=== PATIENT | female | born 1955 | race Caucasian/White ===

== ENCOUNTER 2016-07-09 14:43 | Observation (INO) | payer OTHER ==
--- NOTE | 2016-07-09 14:57 | CPEKG ---
Heart Rate: 66 RR Interval: 909 P-R Interval: 140 QRSD Interval: 96 QT Interval: 412 QTC Interval: 432 P [place]: 38 QRS [place]: -25 T Wave [place]: 52 EKG Severity - ABNORMAL ECG - EKG Impression: SINUS RHYTHM EKG Impression: BORDERLINE LEFT AXIS DEVIATION EKG Impression: CONSIDER POSTERIOR INFARCT EKG Impression: MINIMAL ST DEPRESSION, LATERAL LEADS Electronically Signed By: Wes Avelar 11-Jul-2016 08:40:51
--- NOTE | 2016-07-09 15:04 | EDPHY ---
HPI/HX/ROS/PE/MDM Narrative: Chief complaint: Chest pain HPI: Patient presenting with substernal chest pain radiating to her left shoulder, 12/03. This began approximately 30 minutes prior to arrival at the emergency department. 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 Pain began at rest. She does not have a history of the same. She has a past medical history of rheumatoid arthritis, osteoarthritis and pancreatitis 3 years ago. Some shortness of breath associated with this. No nausea or vomiting. She does have a family history of coronary disease. Father of an DC at age 56. She does not smoke and never has. ROS: 10 point Review of Systems is negative except as noted in the HPI. Past medical history: Rheumatoid arthritis Osteoarthritis Pancreatitis Medications: Benicar Omeprazole Cymbalta vicoprofen p.r.n. Allergies: Reglan and chloroquine Physical exam: Gen: Awake, Alert, uncomfortable appearing HEENT: Nose: no rhinorrhea Eyes: PERRLA, EOMI Mouth: Moist mucosa Neck: Supple, no JVD Chest: nontender, lungs clear to auscultation Heart: S1, S2 normal, no murmur Abd: Soft, non-tender, no guarding Back: no CVA tenderness, no midline tenderness Ext: no edema, non-tender Skin: no rash Neuro: CN II-XII intact, Sensation grossly intact, Strength 5/5 in bilateral upper and lower extremities ED Course: EC:55 sinus rhythm with a rate of 66. Normal will a [address]-depression in leads V4 & V5. Friends also consistent with old posterior infarct MDM: 61-year-old female presenting with substernal chest pain radiating to her left shoulder. Has episodes of coronary disease. Initially on arrival here was 7 on 10. During my evaluation her pain dropped from a 7 to a 10. ECG showed some mild ST depression in lateral leads but no acute ST elevations. Will give aspirin and nitrates. Troponin ordered. She will ultimately require admission for further evaluation. - Data Points Laboratory Results: Laboratory Results 07/09/16 15:06 07/09/16 15:06 07/09/16 15:06 WBC 7.21 10^3/uL (3.80-9.50) RBC 4.48 10^6/uL (4.18-5.33) Hgb 13.9 g/dL (12.6-16.3) Hct 41.2 % (38.0-47.0) MCV 92.0 fL (81.5-99.8) MCH 31.0 pg (27.9-34.1) MCHC 33.7 g/dL (32.4-36.7) RDW 13.3 % (11.5-15.2) Plt Count 233 10^3/uL (150-400) MPV 9.5 fL (8.7-11.7) Neut % (Auto) 53.2 % (39.3-74.2) Lymph % (Auto) 37.7 % (15.0-45.0) [place] % (Auto) 6.1 % (4.5-13.0) Eos % (Auto) 2.1 % (0.6-7.6) Baso % (Auto) 0.6 % (0.3-1.7) Nucleat RBC Rel Count 0.0 % (0.0-0.2) Absolute Neuts (auto) 3.84 10^3/uL (1.70-6.50) Absolute Lymphs (auto) 2.72 10^3/uL (1.00-3.00) Absolute Monos (auto) 0.44 10^3/uL (0.30-0.80) Absolute Eos (auto) 0.15 10^3/uL (0.03-0.40) Absolute Basos (auto) 0.04 10^3/uL (0.02-0.10) Absolute Nucleated RBC 0.00 10^3/uL (0-0.01) Immature Gran % 0.3 % (0.0-1.1) Immature Gran # 0.02 10^3/uL (0.00-0.10) Sodium 141 mEq/L (134-144) Potassium 3.7 mEq/L (3.5-5.2) Chloride 108 mEq/L (97-110) Carbon Dioxide 23 mEq/l (22-31) Anion Gap 10 mEq/L (8-16) BUN 25 H mg/dL (7-23) Creatinine 0.8 mg/dL (0.6-1.0) Estimated GFR > 60 Glucose 90 mg/dL (70-100) Calcium 9.7 mg/dL (8.5-10.4) Troponin I < 0.012 ng/mL (0-0.034) Medications Given: Discontinued Medications Aspirin (Aspirin) 324 mg PO EDNOW ONE Stop: 07/09/16 15:08 Last Admin: 07/09/16 15:25 Dose: 324 mg Nitroglycerin (Nitrostat) 0.4 mg SL EDNOW ONE Stop: 07/09/16 15:08 Last Admin: 07/09/16 15:25 Dose: 0.4 mg General Time Seen by Provider: 07/09/16 14:50 Initial Vital Signs: Initial Vital Signs Temperature (C) 36.2 C 07/09/16 14:43 Heart Rate 69 07/09/16 14:43 Respiratory Rate 16 07/09/16 14:43 Blood Pressure 140/98 H 07/09/16 14:43 O2 Sat (%) 98 07/09/16 14:43 O2 Delivery Mode Room Air Allergies/Adverse Reactions: metoclopramide HCl [From Reglan] Allergy (Verified 11/02/13 14:46) HYDROCHOLORQUIN Allergy (Uncoded 07/09/16 14:48) Home Medications: Medication Instructions Recorded DULoxetine [Cymbalta] 60 mg PO DAILY 07/29/11 Cyclobenzaprine [Flexeril] 20 mg PO HS PRN 07/30/11 Hydrocodone/Ibuprofen [VICOPROFEN 11/02/13 200-7.5 MG TAB] Olmesartan Medoxomil [Benicar] 11/02/13 Omeprazole [Prilosec 20 mg] 11/02/13 Departure - Departure Disposition: [facility] Clinical Impression: Chest pain Condition: Fair
[2016-07-09] MEDS ORDERED: ASPIRIN 81 MG CHEWABLE TAB PO ONE (15:07)
[2016-07-09] MEDS ORDERED: NITROGLYCERIN 0.4 MG BTL SL ONE (15:07)
[2016-07-09 15:18] LABS: % IMMATURE GRANULYOCYTES 0.3 % (0.0-1.1); ABSOLUTE IMMATURE GRANULOCYTES 0.02 10^3/uL (0.00-0.10); ADD DIFF? NO; ADD MORPH? NO; ADD SCAN? NO; ATYPICAL LYMPHOCYTE FLAG 10 (0-99); FRAGMENT RBC FLAG 0 (0-99); HEMATOCRIT 41.2 % (38.0-47.0); HEMOGLOBIN 13.9 g/dL (12.6-16.3); LEFT SHIFT FLG 0 (0-99); LIPEMIA HEMOLYSIS FLAG 80 (0-99); MEAN CELL HEMOGLOBIN CONCENTR. 33.7 g/dL (32.4-36.7); MEAN PLATELET VOLUME 9.5 fL (8.7-11.7); PLATELET CLUMPS FLAG 0 (0-99); PLATELET COUNT 233 10^3/uL (150-400); RED BLOOD CELL COUNT 4.48 10^6/uL (4.18-5.33); RED CELL DISTRIBUTION WIDTH 13.3 % (11.5-15.2)
[2016-07-09 15:41] LABS: ANION GAP 10 mEq/L (8-16); CALCIUM 9.7 mg/dL (8.5-10.4); CARBON DIOXIDE 23 mEq/l (22-31); CHLORIDE 108 mEq/L (97-110); CREATININE 0.8 mg/dL (0.6-1.0); GLOMERULAR FILTRATION RATE > 60; GLUCOSE 90 mg/dL (70-100); POTASSIUM 3.7 mEq/L (3.5-5.2); SODIUM 141 mEq/L (134-144)
[2016-07-09 15:51] LABS: TROPONIN I < 0.012 ng/mL (0-0.034)
[2016-07-09] MEDS ORDERED: ACETAMINOPHEN 325 MG TAB PO ONE (15:59)
[2016-07-09] MEDS ORDERED: ONDANSETRON 4 MG/2 ML VIAL IVP PRN (16:27)
[2016-07-09] MEDS ORDERED: ONDANSETRON DISINTEGRATING 4 MG TAB PO PRN (16:27)
[2016-07-09] MEDS ORDERED: ACETAMINOPHEN 325 MG TAB PO PRN (16:27)
[2016-07-09] MEDS ORDERED: NITROGLYCERIN 0.4 MG BTL SL PRN (16:27)
--- NOTE | 2016-07-09 16:58 | DX ---
PA and lateral chest. Clinical History: CP Comparison Study: September 20, 2015.. Findings: The lungs are clear. No pleural disease identified. Heart size is normal. Moderate tortuosity of the descending thoracic aorta, unchanged.. Impression: Stable negative chest.
--- NOTE | 2016-07-09 17:00 | GHP ---
[f rep st] HISTORY AND PHYSICAL DATE OF ADMISSION: 07/09/2016 CHIEF COMPLAINT: Left-sided chest pain. HISTORY OF PRESENT ILLNESS: Patient is a 61-year-old female with past medical history of rheumatoid arthritis, migraines, presenting with left-sided chest pain. She was sitting at her desk at work at approximately 2:30 this afternoon and developed sharp left-sided chest pain with radiation to her shoulder. She did have associated shortness of breath with it. She felt nauseated this morning, but did not think much of it. She denied diaphoresis or numbness. The pain was relieved with nitroglycerin in the emergency room. She is currently chest pain-free. No fevers, chills or sweats. Has had an upper respiratory infection for the past 5 weeks. Does not exercise. She walks stairs daily at work without chest pain or shortness of breath. The patient has been seen previously by Dr. Hughes last year, who recommended stress test at that time. The patient was waiting for this year for the new [employer] account to be able to pay the co-pay. REVIEW OF SYSTEMS: A complete 10-point review of systems negative except HPI. PAST MEDICAL HISTORY: 1. Migraines. 2. Rheumatoid arthritis. 3. History of pancreatitis. PAST SURGICAL HISTORY: C section x2. SOCIAL HISTORY: Lives in [place]. 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 Denies illicit tobacco or drugs. FAMILY HISTORY: Father of an HI at age 66. Paternal uncle of an HI. MEDICATIONS: 1. Flexeril p.r.n. 2. Cymbalta 60 mg daily. 3. Vicoprofen p.r.n. 4. Benicar 20 mg daily. 5. Omeprazole 20 mg daily. ALLERGIES: Reglan and hydrochloroquine. PHYSICAL EXAM: VITAL SIGNS: Temperature 36.3, blood pressure 137/81, heart rate 60, respirations 18, 98% on room air. GENERAL: Patient is lying in bed, in no acute distress. HEENT: PERRLA, EOMI. Moist mucous membranes. CV: No reproducible chest pain. No lower extremity edema. LUNGS: Clear to auscultation bilaterally. ABDOMEN: Soft, nontender, nondistended. Positive bowel sounds. : No suprapubic tenderness. No Segura. MUSCULOSKELETAL: Moving all 4 extremities. NEURO: 2 through 12 intact. PSYCH: Alert and oriented x3. Very pleasant. LABS: Sodium 141, potassium , chloride 108, carbon dioxide 23, BUN 25 , creatinine 0.8, glucose 90, calcium 9.7, troponin less than 0.012. EKG personally reviewed by me: Normal sinus rhythm. No ST elevation. Some ST flattening in lead 3, aVF. ASSESSMENT AND PLAN: 1. Left-sided chest pain: Concerning giving typical symptoms left-sided with radiation. It was relieved with nitroglycerin. She does have a family history with father and uncle with myocardial infarction. Initial troponin and EKG are negative. I will repeat both of these. Admit patient to the EACU for continuous telemetry. Patient has difficulty walking given osteoarthritis. Will order a Lexiscan to be done in the morning. The patient is agreeable to this plan. 2. Rheumatoid arthritis: Continue home medications. 3. Benign hypertension. Continue Benicar. 4. Gastroesophageal reflux disease. Continue proton pump inhibitor. 5. Diet: Regular, caffeine free. 6. Deep vein thrombosis prophylaxis, low risk, ambulatory. DISPOSITION: Patient warrants observation admission given acute chest pain with concern for ACS. We will repeat serial troponin, EKG and Lexiscan test. /[id number]/MODL MTDD
[2016-07-09 20:48] LABS: HEMOGLOBIN A1C 5.9 % (4.0-6.0)
[2016-07-09] MEDS ORDERED: CYCLOBENZAPRINE 10 MG TAB PO PRN (20:57)
[2016-07-09] MEDS ORDERED: IBUPROFEN PO PRN (20:57)
[2016-07-09] MEDS ORDERED: LIDOCAINE 5% 1 EA PATCH TD PRN (20:57)
[2016-07-09] MEDS ORDERED: SUMATRIPTAN SUCC PO PRN (20:57)
[2016-07-09] MEDS ORDERED: HYDROCODONE PO PRN (20:57)
[2016-07-09] MEDS ORDERED: NAPROXEN SOD PO PRN (20:57)
[2016-07-09] MEDS ORDERED: OMEGA-3 FATTY ACIDS 1,000 MG CAP PO SCH (21:00)
[2016-07-09] MEDS: HYDROCODONE/APAP 10/325 TAB PO PRN (21:57)
--- NOTE | 2016-07-09 22:50 | CPEKG ---
Heart Rate: 59 RR Interval: 1017 P-R Interval: 140 QRSD Interval: 104 QT Interval: 428 QTC Interval: 424 P [place]: 46 QRS [place]: -13 T Wave [place]: 40 EKG Severity - ABNORMAL ECG - EKG Impression: SINUS RHYTHM Electronically Signed By: Wes Avelar 11-Jul-2016 08:41:01
[2016-07-10] MEDS ORDERED: LEVOTHYROXINE 25 MCG TAB PO SCH (06:00)
[2016-07-10 06:27] LABS: CHOLESTEROL 218 mg/dL (140-220); CHOLESTEROL/HDL RATIO 4.54 RATIO (1.00-4.44); HIGH DENSITY LIPOPROTEIN 48 mg/dL (40-85); LDL/HDL RATIO 3.08 RATIO (1.00-3.22); LOW DENSITY LIPOPROTEIN 148 mg/dL (80-100); NON-HIGH DENSITY LIPOPROTEIN 170 mg/dL (90-129); TRIGLYCERIDE 113 mg/dL (35-135); VERY LOW DENSITY LIPOPROTEINS 22 mg/dL (8-25)
[2016-07-10] MEDS ORDERED: NON-FORMULARY NEW DRUG (Omeprazole [Omeprazole] 40 MG) PO SCH (09:00)
[2016-07-10] MEDS ORDERED: OLMESARTAN MEDOXOMIL 20 MG TAB PO SCH (09:00)
[2016-07-10] MEDS ORDERED: Herbals/Supplements -Info Only PO SCH (09:00)
[2016-07-10] MEDS ORDERED: PANTOPRAZOLE SODIUM 40 MG TAB PO SCH (09:00)
[2016-07-10] MEDS ORDERED: DULoxetine 60 MG CAP PO SCH (09:00)
[2016-07-10] MEDS ORDERED: REGADENOSON 0.4 MG/5 ML SYR IVP ONE (09:37)
[2016-07-10 10:45] VITALS: PULSE 61; TEMP 97.9
--- NOTE | 2016-07-10 11:24 | CPR ---
[f rep st] NONINVASIVE CARDIAC PROCEDURE REPORT PROCEDURE: Lexiscan injection of Lexiscan MPI study. INDICATION FOR PROCEDURE: Chest pain, patient with osteoarthritis, unable to run on exercise treadm ill, abnormal electrocardiogram. PRE: After obtaining informed consent and assuring patient's n.p.o. status of caffeine for greater than 12 hours, patient placed on electrocardiogram. Initial EKG showing sinus rhythm with noted poo r R-wave progression in anterior leads, upright T-waves in V1, questioning possible posterior PR. P atient denies of any chest pain, shortness of breath or symptoms suggesting of ischemia. Initial bl ood pressure of 120/86, saturation 96%. INJECTION: The patient was given Lexiscan slow IV push. The patient initially felt flushing and mi ld shortness of breath. Within 1 minute, heart rate did raise up to 111 beats per minute. Electroc ardiogram remained unchanged except elevated heart rate post injection. Symptoms did improve with c affeinated beverages after nuclear isotope injection. Within 5 minutes, she did return to her basel ine heart rate of 75 beats per minute. Blood pressure remained stable throughout the study, saturat ion 96. Patient was noted to have occasional premature ventricular contraction and occasional navin ture atrial contraction. At the end of 5 minutes, patient's vital signs remained stable, symptoms s ubsided, and she finished her post MPI stress images in nuclear medicine. IMPRESSION: A 61-year-old female with an episode of chest pressure and abnormal electrocardiogram, unable to run on treadmill for osteoarthritis, being evaluated for cardiac ischemia by MPI study. N o significant EKG changes with Lexiscan injection, vital signs stable. Patient did report mild shor tness of breath and flushing sensation post Lexiscan injection which resolved after caffeinated beve rage given. Results pending on MPI imaging. /[id number]/MODL
[2016-07-10] MEDS: HYDROCODONE/APAP 10/325 TAB PO PRN (11:56)
[2016-07-10 12:47] VITALS: BP 143/88; RESP 17; O2SAT 93
--- NOTE | 2016-07-10 15:36 | ECHO ---
[id number] + + [address] : : [place] [address] : : [phone] + Adult Echocardiographic Report + ----+ :Name: ADRIANA MITCHELL BStudy Date: 07/10/2016 02:44 PM BP: 143/88 mmHg : : Hospital Admission Number: [id number] Location: 144: :: 1955 Gender: Female Height: 64 in : :Age: 61 yrs Race: WH Weight: 176 lb : :Reason For Study: eval for WMA : : BSA: 1.9 meters2 : :History: r/o inferior infarct on nuclear : + ----+ MMode/2D Measurements \T\ Calculations IVSd: 1.2 cm RVDd: 2.9 cm FS: 30.2 % Ao root diam: LVPWd: 0.96 cm LVIDd: 4.2 cm EDV(Teich): 2.8 cm LVIDs: 2.9 cm 78.6 ml LA dimension: ESV(Teich): 3.9 cm 33.0 ml EF(Teich): 58.0 % LVLd ap4: 8.6 cm SV(MOD-sp4): EDV(MOD-sp4): 86.0 ml 132.0 ml LVLs ap4: 7.3 cm ESV(MOD-sp4): 46.0 ml EF(MOD-sp4): 65.2 % Normal Measurement Values: + + :LVIDd (3.5-5.7cm) IVSd (0.6-1.1cm) LVPWd (0.6-1.1cm) Aortic Root (2.0-3.7cm)Left Atrium (1.5-4.0cm): :LV Vol(d) (76-115ml) LV Vol(s) (29-48ml) Ejec Fraction (50-65%)PV Eitan (0.6- 1.2m/s) TV Eitan (0.4-1.0m/s) : :MV E Eitan (0.8-1.0m/s)MV A Eitan (0.3-1.0m/s)LVOT Eitan (0.7-1.2m/s) Asc Ao Eitan ( 0.9-1.8m/s) : + + Doppler Measurements \T\ Calculations MV E max eitan: Ao V2 max: AI max eitan: LV V1 max: 64.7 cm/sec 148.0 cm/sec 359.0 cm/sec 100.0 cm/sec MV A max eitan: Ao max PG: AI max P.6 mmHgLV V1 max P.0 cm/sec 8.8 mmHg AI dec slope: 4.0 mmHg MV E/A: 0.62 130.5 cm/sec2 MV dec time: AI P1/2t: 805.7 msec 0.28 sec PA V2 max: TR max eitan: 102.0 cm/sec 257.0 cm/sec PA max P.2 mmHgTR max P.4 mmHg RAP systole: 5.0 mmHg RVSP(TR): 31.4 mmHg Left Ventricle The left ventricle is normal in size and function. There is normal left ventricular wall thickness. Ejection Fraction = 60-65%. No regional wall motion abnormalities noted. Right Ventricle The right ventricle is normal in size and function. Atria The left atrium is mildly dilated. The Left Atrial Volume is 34 ml/m2. Right atrial size is normal. Mitral Valve The mitral valve is normal in structure and function. There is no mitral valve stenosis. There is mild mitral regurgitation. Tricuspid Valve The tricuspid valve is normal in structure and function. There is no tricuspid stenosis. There is trace to mild tricuspid regurgitation. Right ventricular systolic pressure is 31mmHg. Aortic Valve The aortic valve is trileaflet. The right coronary cusp is thickened and sclerotic. There is no aortic stenosis. Mild aortic regurgitation. Pulmonic Valve The pulmonic valve is not well visualized. There is no pulmonic valvular regurgitation. Great Vessels The aortic root is normal size. Pericardium/Pleural There is no pericardial effusion. Conclusion A two-dimensional transthoracic echocardiogram with M-mode and Doppler was performed. 1. The left ventricle is normal in size and function. The Ejection Fraction = 60-65%. 2. The left atrium is mildly dilated. 3. The mitral valve is normal in structure and function. There is mild mitral regurgitation. 4. The aortic valve is trileaflet. The right coronary cusp is thickened and sclerotic. There is no aortic stenosis. Mild aortic regurgitation. 5. No old studies for comparison. 6. Consider repeat study in 1 to 3 years to evaluate the aortic valve. Final Reading Physician: Wes Vivar MD electronically signed on 07/10/2016 03:34 PM Ordering Physician: Martita Young Performed By: June Payne
--- NOTE | 2016-07-10 20:41 | GDS ---
[f rep st] DISCHARGE SUMMARY DISCHARGE DIAGNOSES: 1. Chest pain, thought noncardiac. 2. Rheumatoid arthritis. 3. Migraine headaches. 4. History of pancreatitis. HISTORY OF PRESENT ILLNESS: A 61-year-old female who presents with complaints of chest pain. For d etails of patient's initial presentation, please see the history and physical dated 07/09/2016. CONSULTATIVE SERVICES: Cardiology. PROCEDURES: 1. On 07/10/2016, patient had a myocardial perfusion scan. Intimated there may be inferior wall in farct. 2. On 07/10/2016, patient had a transthoracic echocardiogram, with normal left ventricular function and ejection fraction without segmental wall motion abnormalities. HOSPITAL COURSE: Chest pain. Patient did have a notable family history of coronary artery disease. She was ruled out overnight on telemetry with serial troponins and EKGs, and taken for a stress te sting in the morning. There was abnormal finding on the nuclear stress test concerning for possible inferior wall infarct. Patient had a transthoracic echocardiogram that confirmed no significant wa ll motion abnormalities. The patient is being discharged to follow with Dr. Gabriela Hughes, her outpati ent clerical associate, for ongoing management of her cardiac risk factors and chest pain complaints if re current. Of note, on disposition we are not changing any of her home medications. DISCHARGE MEDICATIONS: Please reference to medication reconciliation printed on 05/09/2017. FOLLOWUP APPOINTMENTS: Include with Dr. Gabriela Hughes in the next 2-4 weeks for post disposition follo wup and long-term cardiovascular monitoring. PENDING STUDIES: At the time of this dictation are none. TIME SPENT: I spent greater than 30 minutes in the planning and coordination of this discharge. /[id number]/MODL
== END 2016-07-10 16:56 | disposition home or self-care (01) ==
LOC: F1N 16:30
PROVIDERS: ADMIT Internal Medicine; ATTEND Internal Medicine
DX: R07.89 Other chest pain (principal); M06.9 Rheumatoid arthritis, unspecified; G43.909 Migraine, unspecified, not intractable, without status migrainosus; Z82.49 Family history of ischemic heart disease and other diseases of the circulatory system; I10 Essential (primary) hypertension; K21.9 Gastro-esophageal reflux disease without esophagitis; M19.90 Unspecified osteoarthritis, unspecified site
CPT/HCPCS: 71020; 78452; 93017; 93306; 99285; A9500; G0378; J2785

== ENCOUNTER → 2016-11-10 | Outpatient (CLI) | payer OTHER | LOC: FIMAGING 08:35 | PROVIDERS: ATTEND Physician Assistant | DX: M54.5 Low back pain (principal); M48.06 Spinal stenosis, lumbar region; R93.7 Abnormal findings on diagnostic imaging of other parts of musculoskeletal system; M25.552 Pain in left hip; M24.852 Other specific joint derangements of left hip, not elsewhere classified; M76.02 Gluteal tendinitis, left hip ==

== ENCOUNTER → 2016-12-26 | Day surgery (SDC) | payer OTHER ==
[~2016-12-26] MED LIST: BUPIVACAINE 0.5% 10 ML SDV ONE; DEPO METHYLPREDNISOLONE 40 MG/ML SDV ONE; DEPO METHYLPREDNISOLONE 80 MG/ML SDV ONE; LIDOCAINE 1% 300 MG/30 ML SDV ONE
== END | disposition home or self-care (01) ==
LOC: FIMAGING 08:13
PROVIDERS: ATTEND Radiology Diagnostic Radiology
PROC: 3E0S33Z Introduction of Anti-inflammatory into Epidural Space, Percutaneous Approach (ICD-10-PCS; principal; 2016-12-26)
PROC: 3E0S3BZ Introduction of Anesthetic Agent into Epidural Space, Percutaneous Approach (ICD-10-PCS; principal; 2016-12-26)
DX: M46.1 Sacroiliitis, not elsewhere classified (principal); M54.42 Lumbago with sciatica, left side
CPT/HCPCS: J1030; J1040

== ENCOUNTER → 2017-04-16 | Outpatient (CLI) | payer OTHER | LOC: FIMAGING 12:57 | PROVIDERS: ATTEND Obstetrics & Gynecology | DX: Z12.31 Encounter for screening mammogram for malignant neoplasm of breast (principal); Z80.3 Family history of malignant neoplasm of breast | CPT/HCPCS: G0202 ==